=== PATIENT | female | born 1960 | race American Indian/Alaskan Native ===

== ENCOUNTER 2021-10-18 13:22 | Emergency (ER) | payer OTHER ==
[2021-10-18 13:55] VITALS: BP 144/95; PULSE 95
[2021-10-18] MEDS ORDERED: Bacitracin Oint 1 GM U/D Packet TOP ONE (16:09)
== END 2021-10-18 16:40 | disposition home or self-care (01) ==
LOC: JP.ED 13:22
DX: S20.212A Contusion of left front wall of thorax, initial encounter (principal); S80.212A Abrasion, left knee, initial encounter; F17.210 Nicotine dependence, cigarettes, uncomplicated; Z79.899 Other long term (current) drug therapy; W22.09XA Striking against other stationary object, initial encounter; Y92.129 Unspecified place in nursing home as the place of occurrence of the external cause
CPT/HCPCS: 71101-26-LT; 71101-LT; 99281; 99283

== ENCOUNTER 2023-05-24 19:29 | Emergency (ER) | payer OTHER ==
[2023-05-24 20:03] VITALS: BP 154/84; PULSE 97
[2023-05-24] MEDS: Ketorolac 30 MG/ML SDV IM ONE (20:13)
== END 2023-05-24 21:16 | disposition home or self-care (01) ==
LOC: JP.ED 19:29
DX: M25.551 Pain in right hip (principal); M54.31 Sciatica, right side; I10 Essential (primary) hypertension; E78.00 Pure hypercholesterolemia, unspecified; F17.210 Nicotine dependence, cigarettes, uncomplicated; Z88.2 Allergy status to sulfonamides; Z79.899 Other long term (current) drug therapy
CPT/HCPCS: 73502; 96372; 99283; J1885